=== PATIENT | female | born 2000 | race Two or more races ===

== ENCOUNTER 2023-09-05 12:23 | Outpatient (CLI) | payer OTHER | END 2023-09-05 12:26 | disposition home or self-care (01) | LOC: PRENATAL 12:23 | PROVIDERS: ATTEND Obstetrics & Gynecology Maternal & Fetal Medicine | DX: O36.80X0 Pregnancy with inconclusive fetal viability, not applicable or unspecified (principal); Z36.9 Encounter for antenatal screening, unspecified; Z3A.15 15 weeks gestation of pregnancy ==

== ENCOUNTER 2023-10-07 16:09 | Outpatient (CLI) | payer OTHER | END 2023-10-07 16:18 | disposition home or self-care (01) | LOC: PRENATAL 16:09 | PROVIDERS: ATTEND Obstetrics & Gynecology Maternal & Fetal Medicine | DX: O35.3XX0 Maternal care for (suspected) damage to fetus from viral disease in mother, not applicable or unspecified (principal); O44.00 Complete placenta previa NOS or without hemorrhage, unspecified trimester; Z3A.19 19 weeks gestation of pregnancy ==

== ENCOUNTER 2023-12-04 13:25 | Outpatient (CLI) | payer OTHER | END 2023-12-04 13:26 | disposition home or self-care (01) | LOC: PRENATAL 13:25 | PROVIDERS: ATTEND Obstetrics & Gynecology Maternal & Fetal Medicine | DX: O26.849 Uterine size-date discrepancy, unspecified trimester (principal); O44.00 Complete placenta previa NOS or without hemorrhage, unspecified trimester; Z3A.28 28 weeks gestation of pregnancy ==